=== PATIENT | female | born 1990 | race Caucasian/White ===

== ENCOUNTER 2017-09-02 10:33 | Inpatient (IN) | payer BC ==
[~2017-09-02] VITALS: Ht 165.1 cm; Wt 64.4 kg
[2017-09-02] MEDS ORDERED: CYCLAFEM 1/35 31 TAB PO (10:41)
[2017-09-02] MEDS ORDERED: LEXAPRO 10MG10 MG PO (10:41)
[2017-09-02 11:57] LABS: PH 6 (5-8); SQUAMOUS EPITHELIAL 0-2 /hpf; URINE APPEARANCE Clear; URINE BACTERIA Rare /hpf; URINE BILIRUBIN Negative (NEGATIVE); URINE BLOOD 1+ (NEGATIVE); URINE COLOR Amber; URINE GLUCOSE Negative (NEGATIVE); URINE KETONE Negative (NEGATIVE); URINE RBC 0-2 /hpf; URINE UROBILINOGEN Negative (NEGATIVE); URINE WBC 0-2 /hpf
[2017-09-02 13:43] LABS: BASO % 0.5 % (0.0-2.0); EOS # 0.1 (0.0-0.7); EOS % 0.8 % (0-4.0); GRAN # 6.5 (1.4-6.5); GRAN % 74.9 % (42.2-75.2); HEMATOCRIT 41.1 % (37.0-47.0); HEMOGLOBIN 14.3 g/dl (12.5-16.0); LYMPH # 1.5 (1.2-3.4); LYMPH % 17.3 % (20.0-51.0); MEAN CELL VOLUME 91 fl (80.0-100.0); MEAN CORPUSCULAR HEMOGLOBIN 32 pg (27.0-31.0); MEAN CORPUSCULAR HGB CONC 35 g/dl (33.0-37.0); MEAN PLATELET VOLUME 9.6 fl (7.4-10.4); MONO # 0.6 (0.1-0.6); MONO % 6.3 % (1.7-9.3); PLATELET COUNT 311 K/mm3 (130-400); RED BLOOD COUNT 4.53 M/mm3 (4.10-5.30); REDCELL DISTRIBUTION WIDTH-CV 12.1 % (11.5-14.5); WHITE BLOOD COUNT 8.7 K/mm3 (4.8-10.8)
[2017-09-02 13:54] LABS: ADJUSTED CALCIUM 9.4 mg/dL (8.4-10.2); ALBUMIN 4.5 gm/dL (3.5-5.0); BILIRUBIN,TOTAL 4.6 mg/dL (0.0-1.0); C-REACTIVE PROTEIN 0.8 mg/dL (0.0-0.9); CALCIUM 9.8 mg/dL (8.4-10.2); CREATININE, serum 0.64 mg/dL (0.52-1.25); POTASSIUM 4.2 mmol/L (3.4-5.0)
[2017-09-02] MEDS ORDERED: PROBIOTIC ACID1 EAC3 PO (16:20)
[2017-09-02 16:48] VITALS: BP 106/59; PULSE 61; TEMP 98.3
[2017-09-02 22:15] VITALS: BP 108/68; PULSE 66; TEMP 98.2
[2017-09-03] VITALS (10 sets, daily range): BP systolic 90–113; BP diastolic 55–72; PULSE 58–82; TEMP 98–98.5
[2017-09-03 08:35] LABS: BASO # 0.1 (0.0-0.2); BASO % 0.9 % (0.0-2.0); EOS # 0.1 (0.0-0.7); EOS % 2.2 % (0-4.0); GRAN # 2.9 (1.4-6.5); GRAN % 49.2 % (42.2-75.2); LYMPH # 2.2 (1.2-3.4); LYMPH % 37.7 % (20.0-51.0); MEAN CELL VOLUME 93 fl (80.0-100.0); MEAN CORPUSCULAR HGB CONC 34 g/dl (33.0-37.0); MONO # 0.6 (0.1-0.6); MONO % 9.7 % (1.7-9.3); PLATELET COUNT 254 K/mm3 (130-400); RED BLOOD COUNT 3.89 M/mm3 (4.10-5.30); REDCELL DISTRIBUTION WIDTH-CV 12.4 % (11.5-14.5); WHITE BLOOD COUNT 5.9 K/mm3 (4.8-10.8)
[2017-09-03 08:36] LABS: HEMATOCRIT 36.1 % (37.0-47.0); HEMOGLOBIN 12.3 g/dl (12.5-16.0); MEAN CORPUSCULAR HEMOGLOBIN 32 pg (27.0-31.0)
[2017-09-03 08:37] LABS: ADJUSTED CALCIUM 8.6 mg/dL (8.4-10.2); ALBUMIN 3.5 gm/dL (3.5-5.0); BILIRUBIN,TOTAL 2.8 mg/dL (0.0-1.0); CALCIUM 8.2 mg/dL (8.4-10.2); CREATININE, serum 0.69 mg/dL (0.52-1.25); POTASSIUM 3.7 mmol/L (3.4-5.0); TOTAL PROTEIN 6.3 gm/dL (6.4-8.2)
[2017-09-04] VITALS (13 sets, daily range): BP systolic 102–112; BP diastolic 62–78; PULSE 60–76; TEMP 97.5–99.6
[2017-09-04] MEDS ORDERED: NORCO 325 MG-51 TAB PO (17:21)
== END 2017-09-04 18:33 | disposition home or self-care (01) | DRG 419 ==
LOC: COL.ER 10:33 → SURG 15:20
PROVIDERS: Nurse Practitioner; Surgery
PROC: 0FC98ZZ Extirpation of Matter from Common Bile Duct, Via Natural or Artificial Opening Endoscopic (ICD-10-PCS; 2017-09-03)
PROC: 0FT44ZZ Resection of Gallbladder, Percutaneous Endoscopic Approach (ICD-10-PCS; principal; 2017-09-04 07:30)
DX: K80.63 Calculus of gallbladder and bile duct with acute cholecystitis with obstruction (principal)
CPT/HCPCS: A9284; C1769; J0330; J0696; J1956; J2250; J2405; J2550; J2704; J2710; J3010; J7030; J7120; Q9967